=== PATIENT | female | born 1965 | race Caucasian/White ===

== ENCOUNTER 2016-12-15 07:06 | Emergency (ER) | payer BC, OTHER ==
[2016-12-15 07:15] VITALS: BP 119/72; PULSE 71; TEMP 97.7; BMI 26.6
[2016-12-15] MEDS ORDERED: ONDANSETRON 4 MG/2 ML VIAL IVPUSH ONE ×2 (07:15→08:16)
[2016-12-15] MEDS ORDERED: morphine CARPU-JECT 4 MG/1 ML DISP.SYRIN IVPUSH ONE (07:15)
[2016-12-15] MEDS ORDERED: SODIUM CHLORIDE 1,000 ML IV STA ×2 (07:15→09:17)
[2016-12-15] MEDS ORDERED: morphine CARPU-JECT 10 MG/1 ML DISP.SYRIN ONE (07:19)
[2016-12-15] MEDS ORDERED: ONDANSETRON 4 MG/2 ML VIAL ONE ×2 (07:19→08:16)
--- NOTE | 2016-12-15 07:19 | PDOC ---
History of Present Illness - General Chief Complaint: Nausea/Vomiting Stated Complaint: VOMITING Time Seen by Provider: 12/15/16 07:14 History Source: Patient, Old Records Exam Limitations: No Limitations - History of Present Illness Initial Comments: 12/15/16 07:19 51 y/o female with h/o IDDM presents to the ED with c/o nausea, vomiting and diffuse abdomnal pain that started last evening after eating. The pain is described as being diffuse but mostly in the epigastrium and LLQ, waxing and waning in nature and "gas-like." The voimit consisted mostly of food particles. She denies fever but says that she feels chills. There are no sick contacts in the house--she did not eat any foods out of the ordinary. She denies complaints. Past History - Past Medical History Allergies/Adverse Reactions: Allergies Allergy/AdvReac Type Severity Reaction Status Date / Time Penicillins Allergy Mild Verified 12/15/16 07:07 kiwi Allergy Verified 12/15/16 07:07 Home Medications: Ambulatory Orders Acetaminophen/Caffeine/Butalb [Fioricet -] 1 tab PO Q6H #14 tablet 01/25/13 Alprazolam [Xanax] 0.5 mg PO PRN 01/25/13 Escitalopram Oxalate [Lexapro -] 20 mg PO DAILY 01/25/13 Insulin Lispro [Humalog] 01/25/13 Diclofenac Potassium [Cambia] 50 mg PO DAILY 05/12/13 Enalapril Maleate [Vasotec -] 2.5 mg PO DAILY #0 05/13/13 Fexofenadine HCl [Margarita] 180 mg PO DAILY #0 05/13/13 Diabetes: Yes (on insulin pump) GI Disorders: Yes (GERD) - Immunization History Td Vaccination: No - Psycho/Social/Smoking Cessation Hx Anxiety: No Suicidal Ideation: No Smoking Status: No Smoking History: Former smoker Have you smoked in the past 12 months: No Number of Cigarettes Smoked Daily: 0 If you are a former smoker, when did you quit?: 1985 Information on smoking cessation initiated: No Hx Alcohol Use: No Drug/Substance Use Hx: No Substance Use Type: None Review of Systems - Review of Systems Able to Perform ROS?: Yes Is the patient limited Yi proficient: No Constitutional: Yes: Chills, Fever, Loss of Appetite HEENTM: No: Symptoms Reported Respiratory: No: Symptoms reported Cardiac (ROS): No: Symptoms Reported ABD/GI: Yes: See HPI : No: Symptoms Reported Musculoskeletal: No: Symptoms Reported Integumentary: No: Symptoms Reported Neurological: No: Symptoms reported *Physical Exam - Vital Signs Last Vital Signs Temp Pulse Resp BP Pulse Ox 97.7 F 71 20 119/72 100 12/15/16 07:07 12/15/16 07:07 12/15/16 07:07 12/15/16 07:07 12/15/16 07:07 - Physical Exam Comments: 12/15/16 07:16 GENERAL: Well developed, well nourished. Awake and alert. No acute distress. HEENT: Normocephalic, atraumatic. PERRLA, EOMI. No conjunctival pallor. Sclera are non- icteric. Moist mucous membranes. Oropharynx is clear. NECK: Supple. Full ROM. No JVD. No lymphadenopathy. CARDIOVASCULAR: Regular rate and rhythm. No murmurs, rubs, or gallops. Distal pulses are 2+ and symmetric. PULMONARY: No evidence of respiratory distress. Lungs clear to auscultation bilaterally. No wheezing, rales or rhonchi. ABDOMINAL: Soft. There is mild diffuse tenderness that is worse in the LLQ and epigastrium. No rebound or guarding. No organomegaly. Normoactive bowel sounds. MUSCULOSKELETAL Normal range of motion at all joints. No bony deformities or tenderness. No CVA tenderness. EXTREMITIES: No cyanosis. No clubbing. No edema. No calf tenderness. SKIN: Warm and dry. Normal capillary refill. No rashes. No jaundice. NEUROLOGICAL: Alert, awake, appropriate. Cranial nerves 2-12 intact. Grossly non-focal exam. PSYCHIATRIC: Cooperative. Good eye contact. Appropriate mood and affect. ED Treatment Course - LABORATORY CBC & Chemistry Diagram: 12/15/16 07:30 12/15/16 07:30 Medical Decision Making - Medical Decision Making 12/15/16 07:17 51-year-old female with history of type 1 diabetes presents the emergency department with diffuse abdominal pain nausea and vomiting. Differential diagnosis includes but is not limited to: ACS, pancreatitis, gastritis, gallbladder disease, diverticulosis/diverticulitis, gastroenteritis, dehydration , electrolyte abnormality, toxic/metabolic derangement. Plan: 1. EKG 2. Labs 3. Urine analysis 4. IV fluids for hydration 5. Antiemetics 6. Pain management 7. Abdominal imaging to rule out above-mentioned pathology 8. Observe and reevaluate 12/15/16 11:27 Addendum: The labs were reviewed and are noted in the EMR. CT scan of the abdomen and pelvis is negative for any acute intra-abdominal pathology or infectious etiology. The patient is feeling improved and tolerated by mouth. The plan is to discharge home, follow up with primary care physician within 3 days and return to the ED if her symptoms persist, worsen, or new symptoms arise. *DC/Admit/Observation/Transfer Diagnosis at time of Disposition: Diffuse abdominal pain - Discharge Dispostion Disposition: HOME Condition at time of disposition: Stable Admit: No - Patient Instructions Additional Instructions: You have been evaluated for abdominal pain. The CAT scan of your abdomen and pelvis was negative was for acute intra-abdominal pathology. Please follow-up with your primary care physician within the next 3 days and return to the emergency department if your symptoms persist, worsen, or new symptoms arise.
[2016-12-15 07:39] LABS: MCHC 33.2 g/dl (32.0-36.0)
[2016-12-15 07:46] LABS: MCH 28.9 pg (25.7-33.7); MEAN PLT VOLUME 8.9 fl (7.5-11.1); PLATELET COUNT 293 K/MM3 (134-434); RDW 11.9 % (11.6-15.6); WHITE BLOOD COUNT 14.3 K/mm3 (4.0-10.0)
[2016-12-15 08:04] LABS: ALBUMIN 4.2 g/dl (3.5-5.0); ALK PHOS 83 U/L (32-92); ANION GAP 7 (8-16); BILIRUBIN,TOTAL 0.7 mg/dl (0.2-1.0); CALCIUM 9.4 mg/dl (8.4-10.2); CO2 27 mmol/L (22-28); CREATININE 0.6 mg/dl (0.6-1.3); GLUCOSE,RANDOM 269 mg/dl (74-106); MAGNESIUM 1.5 mg/dL (1.8-2.4); PHOSPHOROUS 2.2 mg/dl (2.5-4.6); SGOT/AST 34 U/L (10-42); SGPT/ALT 41 U/L (10-40); TOT PROT 6.7 g/dl (6.4-8.3)
[2016-12-15 08:05] LABS: CPK(DFH) 111 IU/L (26-140)
[2016-12-15 08:13] LABS: TROPONIN I (DFP) < 0.03 ng/ml (0.03-0.50)
[2016-12-15] MEDS ORDERED: FAMOTIDINE 20 MG/50 ML IVPB 50 ML IVPB ONE ×2 (09:52→09:54)
[2016-12-15] MEDS ORDERED: HEMOQUE TEST 1 EACH EACH ONE (11:33)
[2016-12-15 12:13] LABS: URINE APPEARANCE Cloudy; URINE BILIRUBIN Negative (NEGATIVE); URINE GLUCOSE (UA) 2+ (NEGATIVE); URINE KETONE 3+ (NEGATIVE); URINE LEUK ESTERASE Negative (NEGATIVE); URINE NITRITE Negative (NEGATIVE); URINE PROTEIN Trace (NEGATIVE); URINE UROBILINOGEN 0.2 E.U/dl (0.2-1.0)
[2016-12-15 12:17] LABS: URINE BLOOD TRACE (NEGATIVE)
[2016-12-15 12:22] LABS: URINE RBC 0-3 /hpf (0-3); URINE WBC 0-3 (3-5)
[2016-12-15 12:23] LABS: URINE BACTERIA FEW /hpf (NEGATIVE); URINE HYALINE CAST 0-3 /lpf
[2016-12-15 14:54] LABS: URINE COLOR YELLOW
--- NOTE | 2016-12-15 23:36 | EKG ---
Test Reason : Blood Pressure : / mmHG Vent. Rate : 060 BPM Atrial Rate : 060 BPM P-R Int : 112 ms QRS Dur : 098 ms QT Int : 478 ms P-R-T Axes : 072 026 049 degrees QTc Int : 478 ms NORMAL SINUS RHYTHM INCOMPLETE RIGHT BUNDLE BRANCH BLOCK BORDERLINE ECG WHEN COMPARED WITH ECG OF 12-MAY-2013 07:57, NO SIGNIFICANT CHANGE WAS FOUND Confirmed by MOHINDER AVENDANO MD ([id number]) on 12/15/2016 11:35:38 PM Referred By: INOCENCIO JEFFERSON Confirmed By:MOHINDER AVENDANO MD
== END 2016-12-15 12:18 | disposition home or self-care (01) ==
LOC: FER 07:06
DX: R10.84 Generalized abdominal pain (principal); E11.9 Type 2 diabetes mellitus without complications; K21.9 Gastro-esophageal reflux disease without esophagitis; Z87.891 Personal history of nicotine dependence; Z79.4 Long term (current) use of insulin; Z96.41 Presence of insulin pump (external) (internal)
CPT/HCPCS: 36415; 71010-TC; 74176-TC; 80053; 81003; 81015; 82550; 83690; 83735; 84100; 84484; 85025; 93005; 99283-25

== ENCOUNTER 2017-07-27 06:55 | Emergency (ER) | payer BC, OTHER ==
[2017-07-27 07:07] VITALS: BMI 26.2
[2017-07-27] MEDS ORDERED: SODIUM CHLORIDE 1,000 ML IV ONE (07:55)
[2017-07-27] MEDS ORDERED: METOCLOPRAMIDE HCL INJECTION 10 MG/2 ML VIAL IVPUSH ONE (07:55)
[2017-07-27] MEDS ORDERED: HYDROmorphone HCL CARPU-JECT 1 MG/1 ML DISP.SYRIN IVPUSH ONE (07:57)
[2017-07-27] MEDS ORDERED: FAMOTIDINE 20 MG/50 ML IVPB 20 MG/50 ML MG IVPB ONE ×2 (07:57→08:03)
[2017-07-27] MEDS ORDERED: HYDROmorphone HCL CARPU-JECT 1 MG/1 ML DISP.SYRIN ONE (08:03)
[2017-07-27] MEDS ORDERED: METOCLOPRAMIDE HCL INJECTION 10 MG/2 ML VIAL ONE (08:03)
[2017-07-27 08:12] LABS: BASOPHIL 0.2 % (0-2.0); MCH 28.6 pg (25.7-33.7); MCHC 32.3 g/dl (32.0-36.0); MEAN CELL VOLUME 88.4 fl (80-96); MEAN PLT VOLUME 8.7 fl (7.5-11.1); NEUTROPHILS 92.2 % (42.8-82.8); PLATELET COUNT 261 K/MM3 (134-434); RDW 12.9 % (11.6-15.6); WHITE BLOOD COUNT 15.3 K/mm3 (4.0-10.0)
--- NOTE | 2017-07-27 08:31 | PDOC ---
History of Present Illness - History of Present Illness Initial Comments: 07/27/17 08:34 The patient is a 52-year-old female, with a significant past medical history of Type I diabetes (on an insulin pump), hypertension (taking enalapril), panic disorder, GERD, as well as a remote history of anaphylaxis marked by airway compromise due to 2 exposure to kiwi and penicillin, who presents to the emergency department for complaints of nausea, vomiting, chills, and epigastric pain since yesterday morning. The patient reports numerous episodes of nonbilious/nonbloody emesis over the course of the night. The patients son is at bedside who reports his mother has been dry heaving all morning. The patient reports epigastric pain that radiates to the left. She denies flank pain. She reports experiencing episodes of hot and cold. She states she has experienced similar pain with nausea and vomiting in December, was seen at [facility], and had a negative abdominal CT. The patient reports her last normal bowel movement was Wednesday, nonbloody. She denies chest pain, shortness of breath, headache and dizziness. She denies fever, diarrhea and constipation. She denies dysuria, frequency, urgency and hematuria. Allergies: penicillin (anaphylaxis) Past surgical history: Social history: Pt denies tobacco use, EtOH consumption, or use of illicit drugs PCP: Dr. Darrius Worthy <Patricia Hollingsworth - Last Filed: 07/27/17 08:35> <Carlos Veras - Last Filed: 07/27/17 10:20> - General Chief Complaint: Pain Stated Complaint: ABD PAIN Time Seen by Provider: 07/27/17 07:18 Past History <Patricia Hollingsworth - Last Filed: 07/27/17 08:35> - Past Medical History COPD: No Diabetes: Yes (on insulin pump) GI Disorders: Yes (GERD) - Immunization History Td Vaccination: No - Suicide/Smoking/Psychosocial Hx Smoking Status: No Smoking History: Never smoked Have you smoked in the past 12 months: No Number of Cigarettes Smoked Daily: 0 If you are a former smoker, when did you quit?: 1985 Information on smoking cessation initiated: No Hx Alcohol Use: No Drug/Substance Use Hx: No Substance Use Type: None <Carlos Veras - Last Filed: 07/27/17 10:20> - Past Medical History Allergies/Adverse Reactions: Allergies Allergy/AdvReac Type Severity Reaction Status Date / Time Penicillins Allergy Mild Verified 07/27/17 07:03 kiwi Allergy Verified 07/27/17 07:03 Home Medications: Ambulatory Orders Acetaminophen/Caffeine/Butalb [Fioricet -] 1 tab PO Q6H #14 tablet 01/25/13 Alprazolam [Xanax] 0.5 mg PO PRN 01/25/13 Escitalopram Oxalate [Lexapro -] 20 mg PO DAILY 01/25/13 Insulin Lispro [Humalog] 01/25/13 Diclofenac Potassium [Cambia] 50 mg PO DAILY 05/12/13 Enalapril Maleate [Vasotec -] 2.5 mg PO DAILY #0 05/13/13 Fexofenadine HCl [Margarita] 180 mg PO DAILY #0 05/13/13 Ondansetron [Zofran Odt -] 4 mg SL TID PRN #10 tab.rapdis 07/27/17 Review of Systems - Review of Systems Able to Perform ROS?: Yes <Patricia Hollingsworth - Last Filed: 07/27/17 08:35> - Review of Systems Constitutional: No: Chills, Fever Respiratory: No: Cough, Shortness of Breath Cardiac (ROS): No: Chest Pain ABD/GI: Yes: See HPI, Nausea, Vomiting : Yes: See HPI Neurological: No: Headache All Other Systems: Reviewed and Negative <Carlos Veras - Last Filed: 07/27/17 10:20> *Physical Exam - Vital Signs Last Vital Signs Temp Pulse Resp BP Pulse Ox 60 14 112/62 100 07/27/17 07:05 07/27/17 07:05 07/27/17 07:05 07/27/17 07:05 - Physical Exam Comments: 07/27/17 08:35 GENERAL: The patient is initially wretching, howevr, comfortably sleeping upon exam. alert, and fully oriented, in no acute distress. HEAD: Normal with no signs of trauma. EYES: Pupils equal, round and reactive to light, extraocular movements intact, sclera anicteric, conjunctiva clear with no pallor. ENT: (+) dry mucous membranes. Ears normal, nares patent, oropharynx clear without exudates. NECK: Normal range of motion, supple without lymphadenopathy, JVD, or masses. LUNGS: Breath sounds equal, clear to auscultation bilaterally. No wheeze/ crackles. HEART: Regular rate and rhythm, normal S1 and S2 without murmur or rub. ABDOMEN: (+) slightly decreased bowel sounds. epigastric discomfort to palpation without guarding or rebound. Soft/nondistended. No palpable masses. No hepatosplenomegaly. EXTREMITIES: Normal range of motion, no edema. No clubbing or cyanosis. No cords, erythema, or tenderness. NEUROLOGICAL: Cranial nerves II through XII grossly intact. Normal speech, normal gait. PSYCH: Normal mood, normal affect. SKIN: Warm, Dry, normal turgor, no rashes or lesions noted. no jaundice. <Patricia Hollingsworth - Last Filed: 07/27/17 08:35> - Vital Signs Last Vital Signs Temp Pulse Resp BP Pulse Ox 60 14 112/62 100 07/27/17 07:05 07/27/17 07:05 07/27/17 07:05 07/27/17 07:05 <Carlos Veras - Last Filed: 07/27/17 10:20> Heart Score/ECG Review #1 ECG reviewed & interpreted by me at: 08:00 General ECG Interpretation: Sinus Rhythm, Normal Rate (63), Normal Intervals ( IRBBB, qtc 446), No acute ischemic changes <Carlos Veras - Last Filed: 07/27/17 10:20> ED Treatment Course - LABORATORY CBC & Chemistry Diagram: 07/27/17 07:58 07/27/17 07:58 - ADDITIONAL ORDERS Additional order review: 07/27/17 07:58 RBC 4.59 MCV 88.4 MCHC 32.3 RDW 12.9 MPV 8.7 Neutrophils % 92.2 H D Lymphocytes % 4.2 L D Monocytes % 3.4 L Eosinophils % 0.0 D Basophils % 0.2 - Medications Given in the ED: ED Medications Discontinued Medications Generic Name Dose Route Start Last Admin Trade Name Freq PRN Reason Stop Dose Admin Hydromorphone HCl 0.5 mg 07/27/17 07:57 07/27/17 08:11 Dilaudid Injection - IVPUSH 07/27/17 07:58 0.5 mg ONCE ONE Administration Famotidine/Sodium Chloride 20 mg in 50 mls @ 100 mls/hr 07/27/17 07:57 08:11 Pepcid 20 Mg Premixed Ivpb - IVPB 07/27/17 08:26 100 mls/hr ONCE ONE Administration Metoclopramide HCl 10 mg 07/27/17 07:55 07/27/17 08:11 Reglan Injection - IVPUSH 07/27/17 07:56 10 mg ONCE ONE Administration <Patricia Hollingsworth - Last Filed: 07/27/17 08:35> - LABORATORY CBC & Chemistry Diagram: 07/27/17 07:58 07/27/17 07:58 - ADDITIONAL ORDERS Additional order review: 07/27/17 07:58 RBC 4.59 MCV 88.4 MCHC 32.3 RDW 12.9 MPV 8.7 Neutrophils % 92.2 H D Lymphocytes % 4.2 L D Monocytes % 3.4 L Eosinophils % 0.0 D Basophils % 0.2 - Medications Given in the ED: ED Medications Discontinued Medications Generic Name Dose Route Start Last Admin Trade Name Freq PRN Reason Stop Dose Admin Hydromorphone HCl 0.5 mg 07/27/17 07:57 07/27/17 08:11 Dilaudid Injection - IVPUSH 07/27/17 07:58 0.5 mg ONCE ONE Administration Famotidine/Sodium Chloride 20 mg in 50 mls @ 100 mls/hr 07/27/17 07:57 08:11 Pepcid 20 Mg Premixed Ivpb - IVPB 07/27/17 08:26 100 mls/hr ONCE ONE Administration Metoclopramide HCl 10 mg 07/27/17 07:55 07/27/17 08:11 Reglan Injection - IVPUSH 07/27/17 07:56 10 mg ONCE ONE Administration <Carlos Veras - Last Filed: 07/27/17 10:20> Medical Decision Making - Medical Decision Making 07/27/17 08:29 A portion of this note was documented by scribe services under my direction. I have reviewed the details of the note, within reason, and agree with the documentation with the following case summary and management plan written by me. 52-year-old female with history of insulin-dependent diabetes with insulin pump in place presents with intractable nonbloody nonbilious nausea/vomiting with epigastric pain, no fevers or chills or cardiopulmonary complaints, small but otherwise normal bowel movement yesterday. History of , otherwise no history of recurring GI illness. Had similar presentation in December of this year treated with pain medication and antiemetics, CAT scan at that time was normal. Vitals as noted. Initially in moderate discomfort secondary to nausea and retching, now improved after pain medicine and antiemetic Soft and nondistended, epigastric discomfort to palpation without guarding or rebound 52-year-old female insulin dependent diabetic presents with epigastric pain/ nausea/vomiting. Differential is broad, question diabetic gastroparesis versus gastritis/PUD, rule out biliary or pancreatic pathology, rule out DKA, less likely cardiopulmonary or in etiology. Labs, urinalysis EKG IV fluids, pain control, antiemetic, antacid We'll reassess, no indication for emergent imaging at this time given the normal CAT scan in December with similar presentation and no focal findings on examination 07/27/17 09:34 Leukocytosis of 15.3 with left shift, LFTs and lipase within normal limits, troponin negative. Urinalysis pending. Symptomatically improved, ambulating independently with less nausea. 07/27/17 10:10 Remains significantly improved after medications, asleep now and comfortable without further vomiting. Abdominal exam remains benign without focal tenderness , soft and nondistended. Urinalysis with some ketones but no evidence of infection, anion gap is normal. Question gastroenteritis given the leukocytosis. Agrees with discharge plan, GI follow-up as needed, son at bedside and both understand return precautions. <Carlos Veras - Last Filed: 07/27/17 10:20> *DC/Admit/Observation/Transfer - Attestations Scribe Attestion: 07/27/17 08:35 Documentation prepared by Patricia Hollingsworth, acting as general medical practitioner for Carlos Veras MD, <Patricia Hollingsworth - Last Filed: 07/27/17 08:35> <Carlos Veras - Last Filed: 07/27/17 10:20> Diagnosis at time of Disposition: Epigastric abdominal pain, Insulin dependent diabetes mellitus Nausea and vomiting Qualifiers: Vomiting type: unspecified Vomiting Intractability: non-intractable Qualified Code(s): R11.2 - Nausea with vomiting, unspecified - Discharge Dispostion Disposition: HOME Condition at time of disposition: Improved - Prescriptions Prescriptions: Ondansetron [Zofran Odt -] 4 mg SL TID PRN #10 tab.rapdis PRN Reason: Nausea - Referrals Referrals: Darrius Worthy MD [Primary Care Provider] - Gil Sparks MD [Staff Physician] - Eric Grimes MD [Staff Physician] - - Patient Instructions Printed Discharge Instructions: DI for Gastritis, DI for Vomiting -- Adult Additional Instructions: Activity as tolerated. Stay hydrated. Avoid dairy, spicy or fatty food, caffeine and alcohol. Blood tests and a urine test showed no acute abnormalities. The vomiting could have been due to a viral infection, it could also be related to the mobility of your stomach. Take Pepcid 20 mg twice daily for any persistent stomach burning or upset, this is available [id number]. Take Zofran as prescribed as needed for any persistent nausea. Continue your medications as previously prescribed by your physician. You should follow up with your primary doctor as soon as possible regarding today's emergency department visit. Consider seeing a venetian blind washer as well , consider calling Dr. Bangura or Dr. Grimes. Return to the emergency department for any new or concerning symptoms, particularly persistent vomiting or dehydration, uncontrollable sugar levels, persistent or worsening abdominal pain, bloody vomit or stool, fevers or chills. - Post Discharge Activity
[2017-07-27 08:34] LABS: ALBUMIN 3.9 g/dl (3.4-5.0); ANION GAP 7 (8-16); BILIRUBIN,TOTAL 0.5 mg/dL (0.2-1.0); CALCIUM 9.4 mg/dL (8.5-10.1); CO2 30 mmol/L (21-32); CPK 197 IU/L (26-192); CREATININE 0.6 mg/dL (0.55-1.02); GLUCOSE,RANDOM 155 mg/dL (74-106); SGOT/AST 34 U/L (15-37); SGPT/ALT 49 U/L (12-78); TOT PROT 7.3 g/dl (6.4-8.2)
[2017-07-27 08:35] LABS: ALK PHOS 87 U/L (45-117); TROPONIN I < 0.02 ng/ml (0.00-0.05)
[2017-07-27 09:09] VITALS: TEMP 98.6
[2017-07-27 09:40] LABS: URINE APPEARANCE SLCLOUDY; URINE BILIRUBIN NEGATIVE (NEGATIVE); URINE BLOOD NEGATIVE (NEGATIVE); URINE COLOR YELLOW; URINE GLUCOSE (UA) 1+ (NEGATIVE); URINE KETONE 2+ (NEGATIVE); URINE NITRITE NEGATIVE (NEGATIVE); URINE UROBILINOGEN NEGATIVE mg/dL (0.2-1.0)
[2017-07-27 10:05] LABS: URINE PROTEIN 1+ (NEGATIVE)
[2017-07-27 10:07] LABS: URINE BACTERIA RARE /hpf (NONE SEEN); URINE MUCUS RARE; URINE RBC 8; URINE WBC 1
--- NOTE | 2017-07-27 10:45 | EKG ---
Test Reason : Blood Pressure : / mmHG Vent. Rate : 063 BPM Atrial Rate : 063 BPM P-R Int : 116 ms QRS Dur : 096 ms QT Int : 436 ms P-R-T Axes : 067 035 048 degrees QTc Int : 446 ms NORMAL SINUS RHYTHM WITH SINUS ARRHYTHMIA INCOMPLETE RIGHT BUNDLE BRANCH BLOCK BORDERLINE ECG WHEN COMPARED WITH ECG OF 15-DEC-2016 07:16, NO SIGNIFICANT CHANGE WAS FOUND CLINICAL CORRELATION IS RECOMMENDED Confirmed by JEFFERY ARCEO MD ([id number]) on 07/27/2017 10:45:22 AM Referred By: Confirmed By:JEFFERY ARCEO MD
[2017-07-27 10:59] VITALS: BP 111/66; PULSE 60
[2017-07-27 17:07] LABS: URINE LEUK ESTERASE Negative (NEGATIVE)
== END 2017-07-27 10:59 | disposition home or self-care (01) ==
LOC: JER 06:55
PROC: 3E033GC Introduction of Other Therapeutic Substance into Peripheral Vein, Percutaneous Approach (ICD-10-PCS; principal; 2017-07-27)
PROC: 3E033NZ Introduction of Analgesics, Hypnotics, Sedatives into Peripheral Vein, Percutaneous Approach (ICD-10-PCS; 2017-07-27)
DX: K29.70 Gastritis, unspecified, without bleeding (principal); I10 Essential (primary) hypertension; K21.9 Gastro-esophageal reflux disease without esophagitis; F41.0 Panic disorder [episodic paroxysmal anxiety]; E10.9 Type 1 diabetes mellitus without complications; Z79.4 Long term (current) use of insulin; Z96.41 Presence of insulin pump (external) (internal)
CPT/HCPCS: 36415; 80053; 81003; 81015; 82550; 82553; 83690; 83735; 84484; 85025; 93005; 93010; 99284-25

== ENCOUNTER 2024-06-11 14:52 | Emergency (ER) | payer OTHER, BC ==
[2024-06-11 15:11] VITALS: BP 111/84; PULSE 89; RESP 17; TEMP 98.6; BMI 25.4
[2024-06-11] MEDS ORDERED: LIDOCAINE 5% TOPICAL PATCH ONE (15:16)
[2024-06-11] MEDS: LIDOCAINE 5% TOPICAL PATCH TP ONE (15:17)
[2024-06-11] MEDS ORDERED: LIDOCAINE PATCH REMOVAL MC SCH (22:00)
== END 2024-06-11 17:24 | disposition home or self-care (01) ==
LOC: FER 14:52
DX: S13.4XXA Sprain of ligaments of cervical spine, initial encounter (principal); M25.562 Pain in left knee; M25.552 Pain in left hip; V43.62XA Car passenger injured in collision with other type car in traffic accident, initial encounter; Y92.410 Unspecified street and highway as the place of occurrence of the external cause
CPT/HCPCS: 73521-TC-FY; 73560-TC-LT-FY; 99283-25

== ENCOUNTER 2024-06-13 11:00 | Emergency (ER) | payer OTHER, BC ==
[2024-06-13 11:11] VITALS: BP 127/67; PULSE 82; RESP 20; TEMP 98.6; BMI 25.4
[2024-06-13] MEDS ORDERED: IBUPROFEN 400 MG TABLET (FP) PO ONE (11:36)
[2024-06-13] MEDS ORDERED: CYCLOBENZAPRINE HCL 5 MG TABLET ONE (11:37)
[2024-06-13] MEDS: CYCLOBENZAPRINE HCL 10 MG TABLET (FP) PO ONE (11:38)
[2024-06-13] MEDS: IBUPROFEN 400 MG TABLET (FP) PO ONE (11:38)
== END 2024-06-13 15:42 | disposition home or self-care (01) ==
LOC: FER 11:00
DX: S06.300A Unspecified focal traumatic brain injury without loss of consciousness, initial encounter (principal); M54.50 Low back pain, unspecified; M54.2 Cervicalgia; V43.32XA Unspecified car occupant injured in collision with other type car in nontraffic accident, initial encounter
CPT/HCPCS: 70450-TC; 72125-TC; 99284-25